=== PATIENT | female | born 1970 | race Caucasian/White ===

== ENCOUNTER → 2017-02-01 | Outpatient (REF) | payer MEDICARE ==
[~2017-02-01] MED LIST: /ESOM40CA; AMIT10TA2; DETR2CAP; PROZ40CA; TOPI50TA
[2017-02-01 21:38] LABS: BASO % 0.6 % (0.0-1.0); EOS # 0.1 K/mm3 (0.0-0.50); EOS % 1.6 % (0.0-3.0); LARGE UNSTAINED CELL # 0.1 K/mm3 (0.0-0.4); LARGE UNSTAINED CELL % 2.7 % (0.0-4.0); LYMPH # 1.2 K/mm3 (1.5-4.5); LYMPH % 29.4 % (24.0-44.0); MEAN CORPUSCULAR HEMOGLOBIN 30.9 pg (27.0-33.0); MEAN CORPUSCULAR HGB CONC 32.6 g/dl (32.0-36.5); MEAN CORPUSCULAR VOLUME 94.8 fl (80.0-96.0); MONO # 0.2 K/mm3 (0.0-0.8); MONO % 5.9 % (0.0-5.0); NEUTROPHILS # 2.4 K/mm3 (1.8-7.7); NEUTROPHILS % 59.8 % (36.0-66.0); RED CELL DISTRIBUTION WIDTH 13.3 % (11.5-14.5); WHITE BLOOD COUNT 3.9 K/mm3 (4.0-10.0)
[2017-02-01 21:49] LABS: ALBUMIN 3.6 GM/DL (3.2-5.2); ALBUMIN/GLOBULIN RATIO 1.16 (1.00-1.93); ALKALINE PHOSPHATASE 100 U/L (45-117); ALT/SGPT 39 U/L (12-78); ANION GAP 8 MEQ/L (8-16); AST/SGOT 21 U/L (15-37); BILIRUBIN,TOTAL 0.4 MG/DL (0.2-1.0); BLOOD UREA NITROGEN 18 MG/DL (7-18); CALCIUM LEVEL 8.2 MG/DL (8.5-10.1); CARBON DIOXIDE LEVEL 22 MEQ/L (21-32); CHLORIDE LEVEL 114 MEQ/L (98-107); CREATININE FOR GFR 1.04 MG/DL (0.55-1.02); GLOMERULAR FILTRATION RATE > 60.0 (>58); GLUCOSE, FASTING 74 MG/DL (70-105); POTASSIUM SERUM 4.1 MEQ/L (3.5-5.1); SODIUM LEVEL 144 MEQ/L (136-145); TOTAL PROTEIN 6.7 GM/DL (6.4-8.2)
[2017-02-01 22:27] LABS: FOLATE 12.5 NG/ML; VITAMIN B12 LEVEL 311 PG/ML
[2017-02-01 22:30] LABS: ADD MORPHOLOGY? YES; PLATELET COUNT, AUTOMATED 95 k/mm3 (150-450)
== END ==
LOC: M LABDRAW1 15:36
PROVIDERS: ATTEND Psychiatry & Neurology Neurology
DX: G35 Multiple sclerosis (principal); G44.229 Chronic tension-type headache, not intractable; G43.009 Migraine without aura, not intractable, without status migrainosus

== ENCOUNTER → 2020-02-10 | Outpatient (REF) | payer MEDICARE, BC, MEDICAID ==
[~2020-02-10] MED LIST changes: -/ESOM40CA; +NEXI1CAP3
[2020-02-10 13:35] LABS: AMORPHOUS SEDIMENT SMALL (NEGATIVE); APPEARANCE, URINE CLOUDY (CLEAR); BACTERIA, URINE AUTO NEGATIVE (NEGATIVE); BILIRUBIN, URINE AUTO NEGATIVE (NEGATIVE); BLOOD, URINE BLOOD NEGATIVE (NEGATIVE); COLOR, URINE YELLOW (YELLOW); GLUCOSE, URINE (UA) AUTO NEGATIVE (NEGATIVE); KETONE, URINE AUTO NEGATIVE (NEGATIVE); LEUKOCYTE ESTERASE, URINE AUTO NEGATIVE (NEGATIVE); NITRITE, URINE AUTO NEGATIVE (NEGATIVE); PROTEIN, URINE AUTO NEGATIVE (NEGATIVE); RBC, URINE AUTO 2 /HPF (0-3); SPECIFIC GRAVITY URINE AUTO 1.013 (1.002-1.035); SQUAMOUS EPITHELIAL CELL UR AU 1 /HPF (0-6); UROBILINOGEN, URINE AUTO 0.2 mg/dL (0.0-2.0); WBC, URINE AUTO 2 /HPF (0-3)
== END ==
LOC: M SMT 12:53
PROVIDERS: ATTEND Nurse Practitioner Women's Health
DX: Z01.818 Encounter for other preprocedural examination (principal); R35.0 Frequency of micturition
CPT/HCPCS: 51798; 81001; 87088; 87186; G0463

== ENCOUNTER → 2020-03-22 | Outpatient (CLI) | payer MEDICARE, BC, MEDICAID ==
[~2020-03-22] MED LIST changes: +BUPR150T3 PO; +CIPR-249 PO; +CYAN1000VL IM; +FAMO40TA3 PO; +TOPA100T12 PO; +VITAD1000T PO
== END ==
LOC: M LABSMTC 09:48
PROVIDERS: ATTEND Anesthesiology
DX: Z01.818 Encounter for other preprocedural examination (principal); Z11.59 Encounter for screening for other viral diseases

== ENCOUNTER 2020-03-23 06:01 | Day surgery (SDC) | payer MEDICARE, MEDICAID ==
[~2020-03-23] VITALS: Ht 152.4 cm; Wt 77.1 kg
[~2020-03-23 06:01] MED LIST changes: +BOTOX THERAPEUTIC 100 UNIT VIAL (J0585 PER 1 UNIT) XX ONE; +LIDOCAINE 1% MDV 20ML VIAL SQ PRN
[2020-03-23] MEDS ORDERED: LR 1,000 ML IV ONE (06:30)
[2020-03-23] MEDS ORDERED: BOTOX THERAPEUTIC 100 UNIT VIAL (J0585 PER 1 UNIT) As Ordered ONE ×2 (07:16→07:25)
[2020-03-23] MEDS ORDERED: propofoL 200 MG/20 ML VIAL As Ordered ONE (07:37)
[2020-03-23] MEDS ORDERED: fentaNYL 100 MCG/2 ML INJECTION (J3010) As Ordered ONE (07:37)
[2020-03-23] MEDS ORDERED: MIDAZOLAM INJ 2MG/2ML VIAL (J2250 PER 1MG) As Ordered ONE (07:37)
[2020-03-23] MEDS ORDERED: LIDOCAINE 2% 5ML JELLY UROJET As Ordered ONE (07:40)
[2020-03-23] MEDS ORDERED: ceFAZolin 2 GM/D5W 50 ML IV BAG (J0690 PER 500MG) As Ordered ONE (07:48)
[2020-03-23] MEDS ORDERED: METOCLOPRAMIDE INJ 10MG/2ML VIAL (J2765 PER 1) IV PRN (08:15)
[2020-03-23] MEDS ORDERED: ONDANSETRON 4MG/2ML VIAL IV PRN (08:15)
[2020-03-23] MEDS ORDERED: LR 1,000 ML IV SCH (08:15)
[2020-03-23] MEDS ORDERED: fentaNYL 100 MCG/2 ML INJECTION (J3010) IV PRN (08:15)
--- NOTE | 2020-03-24 13:31 | RO ---
DATE OF PROCEDURE: 03/23/2020 PREPROCEDURE DIAGNOSIS: Urge urinary incontinence. POSTPROCEDURE DIAGNOSIS: Urge urinary incontinence. PROCEDURE: Cystoscopy, bladder Botox injections. SURGEON: Dr. Navarro Lai [employer]: None. ANESTHESIA: MAC. OPERATIVE INDICATIONS: This is a 49-year-old female with urge urinary incontinence who was brought to the operating room today for the above listed procedure. DESCRIPTION OF PROCEDURE: The patient was brought to the operating room and MAC anesthesia was induced. Prophylactic antibiotics were infused. She was placed in dorsal lithotomy position and prepped and draped in the usual sterile fashion. A rigid cystoscope was inserted into the urethral meatus and advanced into the bladder. There were no abnormalities seen inside the bladder. At this point, a total of 20 units of Botox mixed in 20 mL of normal saline was injected in several areas throughout the bladder. Approximately 20-25 sites were injected. We made sure not to inject on top of the ureteral orifices. Once done, there was excellent hemostasis. The bladder was then emptied of all fluids and this marked the conclusion of the procedure. The patient was then taken out of the dorsal lithotomy position, awakened from anesthesia and transported to the recovery room in stable condition. Estimated blood loss: 5 mL. Complications: None. Specimen: None. Plan: The patient will follow up in the clinic in a few weeks for a postoperative visit to see if her urge urinary incontinence is improved. It is hoped that the effects of the Botox will last for at least 6 to 9 months. MTDD
== END 2020-03-23 09:05 | disposition home or self-care (01) ==
LOC: M SDC 06:01
PROVIDERS: ATTEND Urology
DX: N39.41 Urge incontinence (principal); E07.9 Disorder of thyroid, unspecified; G35 Multiple sclerosis; F41.9 Anxiety disorder, unspecified; F32.9 Major depressive disorder, single episode, unspecified; Z79.899 Other long term (current) drug therapy; Z79.2 Long term (current) use of antibiotics
CPT/HCPCS: 52287; J0585; J0690; J2250; J3010

== ENCOUNTER 2021-05-11 11:11 | Day surgery (SDC) | payer MEDICARE, MEDICAID ==
[~2021-05-11] VITALS: Ht 152.4 cm; Wt 97.1 kg
[~2021-05-11 11:11] MED LIST changes: +BOTOX THERAPEUTIC 100 UNIT VIAL (J0585 PER 1 UNIT) As Ordered ONE; -BOTOX THERAPEUTIC 100 UNIT VIAL (J0585 PER 1 UNIT) XX ONE; +BUPR150T12 PO; -BUPR150T3 PO; +D31000TA2 PO; -LIDOCAINE 1% MDV 20ML VIAL SQ PRN; +LIDOCAINE 2% 5ML JELLY UROJET As Ordered ONE; +LR 1,000 ML IV ONE; +PROP20TA72 PO; +TECF240C PO; -VITAD1000T PO; +ceFAZolin SOD 2 GM in IV 1 EA IV ONE
[2021-05-11] MEDS ORDERED: MIDAZOLAM INJ 2MG/2ML VIAL (J2250 PER 1MG) As Ordered ONE (12:09)
[2021-05-11] MEDS ORDERED: fentaNYL 100 MCG/2 ML INJECTION (J3010) As Ordered ONE (12:09)
[2021-05-11] MEDS ORDERED: ETOMIDATE INJ 20MG/10ML VIAL As Ordered ONE (12:09)
[2021-05-11] MEDS ORDERED: propofoL 200 MG/20 ML VIAL As Ordered ONE ×2 (12:09→12:32)
[2021-05-11] MEDS ORDERED: fentaNYL 100 MCG/2 ML INJECTION (J3010) IV PRN (13:10)
[2021-05-11] MEDS ORDERED: PERCOCET 5MG/325MG TAB PO PRN (13:10)
[2021-05-11] MEDS ORDERED: METOCLOPRAMIDE INJ 10MG/2ML VIAL (J2765 PER 1) IV PRN (13:10)
[2021-05-11] MEDS ORDERED: ONDANSETRON 4MG/2ML VIAL IV PRN (13:10)
[2021-05-11] MEDS ORDERED: LR 1,000 ML IV SCH (13:10)
[2021-05-11 13:52] VITALS: BP 139/61
--- NOTE | 2021-05-11 15:09 | ROOPDOC ---
[facility] Report Of Operation Report of Operation DATE OF PROCEDURE: 05/11/21 PREPROCEDURE DIAGNOSIS: Urge urinary incontinence. POSTPROCEDURE DIAGNOSIS: Urge urinary incontinence. PROCEDURE: Cystoscopy, bladder Botox injections. SURGEON: Dr. Pam Rodriguez [employer]: None. ANESTHESIA: MAC. OPERATIVE INDICATIONS: This is a 50-year-old female with urge urinary incontinence who was brought to the operating room today for the above listed procedure. DESCRIPTION OF PROCEDURE: The patient was brought to the operating room and MAC anesthesia was induced. Prophylactic antibiotics were infused. She was placed in dorsal lithotomy position and prepped and draped in the usual sterile fashion. A rigid cystoscope was inserted into the urethral meatus and advanced into the bladder. There were no abnormalities seen inside the bladder. At this point, a total of 200 units of Botox mixed in 20 mL of normal saline was injected in several areas throughout the bladder. Approximately 20-25 sites were injected. We made sure not to inject on top of the ureteral orifices. Once done, there was excellent hemostasis. The bladder was then emptied of all fluids and this marked the conclusion of the procedure. The patient was then taken out of the dorsal lithotomy position, awakened from anesthesia and transported to the recovery room in stable condition. Estimated blood loss: 5 mL. Complications: None. Specimen: None. Plan: The patient will follow up in the clinic in a few weeks for a postoperative visit to see if her urge urinary incontinence is improved. It is hoped that the effects of the Botox will last for at least 6 to 9 months. PAM RODRIGUEZ MD May 11, 2021 15:09
== END 2021-05-11 15:26 | disposition home or self-care (01) ==
LOC: M SDC 11:11
PROVIDERS: ATTEND Urology
DX: N39.41 Urge incontinence (principal); G35 Multiple sclerosis; R35.0 Frequency of micturition; F32.9 Major depressive disorder, single episode, unspecified; F41.9 Anxiety disorder, unspecified; R23.3 Spontaneous ecchymoses; Z79.899 Other long term (current) drug therapy; Z91.018 Allergy to other foods; Z98.51 Tubal ligation status
CPT/HCPCS: 52287; J0585; J0690; J2250; J3010

== ENCOUNTER → 2021-06-01 | Outpatient (REF) | payer MEDICARE, MEDICAID ==
[~2021-06-01] MED LIST changes: -BOTOX THERAPEUTIC 100 UNIT VIAL (J0585 PER 1 UNIT) As Ordered ONE; -LIDOCAINE 2% 5ML JELLY UROJET As Ordered ONE; -LR 1,000 ML IV ONE; -ceFAZolin SOD 2 GM in IV 1 EA IV ONE
[2021-06-01 14:06] LABS: APPEARANCE, URINE CLEAR (CLEAR); BACTERIA, URINE AUTO 1+ (NEGATIVE); BILIRUBIN, URINE AUTO NEGATIVE (NEGATIVE); BLOOD, URINE BLOOD NEGATIVE (NEGATIVE); COLOR, URINE YELLOW (YELLOW); GLUCOSE, URINE (UA) AUTO NEGATIVE (NEGATIVE); KETONE, URINE AUTO NEGATIVE (NEGATIVE); LEUKOCYTE ESTERASE, URINE AUTO NEGATIVE (NEGATIVE); NITRITE, URINE AUTO POSITIVE (NEGATIVE); PROTEIN, URINE AUTO NEGATIVE (NEGATIVE); RBC, URINE AUTO 0 /HPF (0-3); SQUAMOUS EPITHELIAL CELL UR AU 0 /HPF (0-6); UROBILINOGEN, URINE AUTO 0.2 mg/dL (0.0-2.0); WBC, URINE AUTO 2 /HPF (0-3)
== END ==
LOC: M SMT 13:10
PROVIDERS: ATTEND Nurse Practitioner Women's Health
DX: R32 Unspecified urinary incontinence (principal)

== ENCOUNTER 2023-07-26 13:37 | Day surgery (SDC) | payer MEDICARE, MEDICAID ==
[~2023-07-26] VITALS: Ht 152.4 cm; Wt 88.9 kg
[~2023-07-26 13:37] MED LIST changes: -D31000TA2 PO; +LIDOCAINE 2% 100MG/5ML SDV (FOR ANES.) As Ordered ONE; +MIDAZOLAM INJ 2MG/2ML VIAL As Ordered ONE; +ONDANSETRON 4MG 2ML VIAL As Ordered ONE; +OXCA300T14 PO; +PHEN-239 PO; +TRIA0.5O; +VITA100093 PO; +VITA200016; +ceFAZolin SOD 2 GM in IV 1 EA IV ONE; +fentaNYL 100 MCG/2 ML INJECTION As Ordered ONE; +propofoL 200 MG/20 ML VIAL As Ordered ONE
[2023-07-26] MEDS ORDERED: LR 1,000 ML IV SCH (14:05)
[2023-07-26] MEDS ORDERED: LIDOCAINE 1% SDV 5ML VIAL SC PRN (14:05)
[2023-07-26] MEDS ORDERED: BACTDSTA PO (14:30)
[2023-07-26] MEDS ORDERED: LIDOCAINE 2% 5ML JELLY UROJET As Ordered ONE (15:33)
[2023-07-26] MEDS ORDERED: BOTOX THERAPEUTIC 100 UNIT VIAL As Ordered ONE (15:52)
[2023-07-26 17:10] VITALS: BP 133/75; TEMP 97; O2SAT 98
== END 2023-07-26 17:15 | disposition home or self-care (01) ==
LOC: M SDC 13:37
PROVIDERS: ATTEND Urology
DX: N39.41 Urge incontinence (principal); N32.81 Overactive bladder; G35 Multiple sclerosis; Z91.018 Allergy to other foods; Z79.899 Other long term (current) drug therapy
CPT/HCPCS: 52287; A4215; J0585; J0690; J1100; J2250; J2405; J3010

== ENCOUNTER 2024-06-16 22:08 | Observation (INO) | payer MEDICAID, MEDICARE ==
[~2024-06-16] VITALS: Ht 152.4 cm; Wt 101.5 kg
[~2024-06-16 22:08] MED LIST changes: +BACTDSTA PO; -LIDOCAINE 2% 100MG/5ML SDV (FOR ANES.) As Ordered ONE; -MIDAZOLAM INJ 2MG/2ML VIAL As Ordered ONE; -ONDANSETRON 4MG 2ML VIAL As Ordered ONE; -ceFAZolin SOD 2 GM in IV 1 EA IV ONE; -fentaNYL 100 MCG/2 ML INJECTION As Ordered ONE; -propofoL 200 MG/20 ML VIAL As Ordered ONE
[2024-06-16 22:56] LABS: BASO % 0.7 % (0.0-1.0); EOS # 0.1 10^3/uL (0.0-0.5); EOS % 1.5 % (0.0-3.0); HEMATOCRIT 42.3 % (36.0-47.0); HEMOGLOBIN 14.3 g/dl (12.0-15.5); LYMPH # 1.5 10^3/uL (1.5-5.0); LYMPH % 31.8 % (24.0-44.0); MEAN CORPUSCULAR HEMOGLOBIN 31.6 pg (27.0-33.0); MEAN CORPUSCULAR HGB CONC 33.8 g/dl (32.0-36.5); MEAN CORPUSCULAR VOLUME 93.4 fl (80.0-96.0); MONO # 0.3 10^3/uL (0.0-0.8); MONO % 7.2 % (2.0-8.0); NEUTROPHILS # 2.7 10^3/uL (1.5-8.5); NEUTROPHILS % 58.1 % (36.0-66.0); PLATELET COUNT, AUTOMATED 123 10^3/uL (150-450); RED BLOOD COUNT 4.53 10^6/uL (4.00-5.40); WHITE BLOOD COUNT 4.6 10^3/uL (4.0-10.0)
[2024-06-16 23:15] LABS: ETHYL ALCOHOL (ETHANOL) < 0.003 % (0.000-0.010)
[2024-06-16 23:17] LABS: CPK CREATINE PHOSPHOKINASE 87 U/L (34-145); SALICYLATE LEVEL < 3.0 MG/DL (<30)
[2024-06-16 23:18] LABS: ALBUMIN 3.5 G/DL (3.2-5.2); ALKALINE PHOSPHATASE 87 U/L (46-116); ALT/SGPT 31 U/L (7.0-40); AST/SGOT 22 U/L (<34); BILIRUBIN,DIRECT 0.2 MG/DL (<0.4); BILIRUBIN,TOTAL 0.7 MG/DL (0.3-1.2); BLOOD UREA NITROGEN 15 MG/DL (9-23); CALCIUM LEVEL 8.1 MG/DL (8.5-10.1); CARBON DIOXIDE LEVEL 24 MMOL/L (20-31); CHLORIDE LEVEL 111 MMOL/L (98-107); CREATININE FOR GFR 0.76 MG/DL (0.55-1.30); GLOMERULAR FILTRATION RATE > 60.0 (>51); GLUCOSE, FASTING 89 MG/DL (60-100); POTASSIUM SERUM 3.9 MMOL/L (3.5-5.1); SODIUM LEVEL 143 MMOL/L (136-145); TOTAL PROTEIN 6.5 G/DL (5.7-8.2)
[2024-06-16 23:19] LABS: THYROID STIMULATING HORMONE 1.503 uIU/ML (0.55-4.78)
[2024-06-17] MEDS: NS 1,000 ML IV ONE (00:41)
[2024-06-17 01:16] LABS: AMPHETAMINES LEVEL URINE NEGATIVE (NEGATIVE); BARBITURATES URINE NEGATIVE (NEGATIVE); BENZODIAZEPINES URINE NEGATIVE (NEGATIVE); CANNABINOIDS URINE NEGATIVE (NEGATIVE); COCAINE METABOLITE URINE NEGATIVE (NEGATIVE); METHADONE URINE NEGATIVE (NEGATIVE); OPIATES URINE NEGATIVE (NEGATIVE); PHENCYCLIDINE URINE NEGATIVE (NEGATIVE)
[2024-06-17] MEDS ORDERED: ACETAMINOPHEN TAB 650MG DOSE (2X325MG) PO PRN (06:40)
[2024-06-17] MEDS ORDERED: MOM 30ML SUSPENSION UDC PO PRN (06:40)
[2024-06-17] MEDS ORDERED: MAALOX 30 ML SUSP *UDC PO PRN (06:40)
[2024-06-17] MEDS ORDERED: IBUPROFEN 400MG TAB PO PRN (06:40)
[2024-06-17] MEDS ORDERED: diphenhydrAMINE 25MG CAP PO PRN (06:40)
[2024-06-17] MEDS ORDERED: traZODone 50 MG TAB PO PRN (06:40)
[2024-06-17] MEDS ORDERED: TRIA0.5O TOP (06:53)
[2024-06-17] MEDS ORDERED: NICOTINE 21MG/24HR 1 EA TRANSDERMAL TD SCH (09:00)
[2024-06-17] MEDS ORDERED: ONDANSETRON 4MG 2ML VIAL As Ordered ONE (09:54)
[2024-06-17] MEDS ORDERED: ISOVUE-370 76% 100ML VIAL As Ordered ONE (09:57)
[2024-06-17] MEDS: ONDANSETRON 4MG 2ML VIAL IV ONE (10:21)
[2024-06-17] MEDS: NS 500 ML IV ONE (10:23)
[2024-06-17 10:28] LABS: BASO % 0.5 % (0.0-1.0); EOS # 0.1 10^3/uL (0.0-0.5); EOS % 0.9 % (0.0-3.0); HEMATOCRIT 43.7 % (36.0-47.0); HEMOGLOBIN 14.7 g/dl (12.0-15.5); LYMPH # 0.9 10^3/uL (1.5-5.0); LYMPH % 15.8 % (24.0-44.0); MEAN CORPUSCULAR HEMOGLOBIN 31.2 pg (27.0-33.0); MEAN CORPUSCULAR HGB CONC 33.6 g/dl (32.0-36.5); MEAN CORPUSCULAR VOLUME 92.8 fl (80.0-96.0); MONO # 0.3 10^3/uL (0.0-0.8); MONO % 4.6 % (2.0-8.0); NEUTROPHILS # 4.4 10^3/uL (1.5-8.5); NEUTROPHILS % 77.7 % (36.0-66.0); PLATELET COUNT, AUTOMATED 123 10^3/uL (150-450); RED BLOOD COUNT 4.71 10^6/uL (4.00-5.40); WHITE BLOOD COUNT 5.7 10^3/uL (4.0-10.0)
[2024-06-17] MEDS ORDERED: D200CAP3 PO (10:28)
[2024-06-17] MEDS ORDERED: VENL37.598 PO (10:28)
[2024-06-17] MEDS ORDERED: TERI7TAB PO (10:28)
[2024-06-17] MEDS ORDERED: HOME MED LIST COMPLETE! XX SCH (10:35)
[2024-06-17 10:37] LABS: INR 1.11; PARTIAL THROMBOPLASTIN TIME 26.8 SECONDS (24.8-34.2)
[2024-06-17 10:50] LABS: BLOOD UREA NITROGEN 11 MG/DL (9-23); CALCIUM LEVEL 8.3 MG/DL (8.5-10.1); CARBON DIOXIDE LEVEL 22 MMOL/L (20-31); CHLORIDE LEVEL 114 MMOL/L (98-107); CREATININE FOR GFR 0.65 MG/DL (0.55-1.30); GLOMERULAR FILTRATION RATE > 60.0 (>51); GLUCOSE, FASTING 123 MG/DL (60-100); POTASSIUM SERUM 3.7 MMOL/L (3.5-5.1); SODIUM LEVEL 142 MMOL/L (136-145)
[2024-06-17] MEDS: D5W/0.45% SODIUM CHLORIDE 1,000 ML IV ONE (12:24)
[2024-06-17] MEDS ORDERED: ONDANSETRON 4MG TAB PO PRN (15:15)
[2024-06-17] MEDS: NS 1,000 ML IV SCH (15:39)
[2024-06-17 15:51] LABS: HEMATOCRIT 43.6 % (36.0-47.0); HEMOGLOBIN 14.9 g/dl (12.0-15.5); MEAN CORPUSCULAR HGB CONC 34.2 g/dl (32.0-36.5); MEAN CORPUSCULAR VOLUME 93.6 fl (80.0-96.0); PLATELET COUNT, AUTOMATED 107 10^3/uL (150-450); RED BLOOD COUNT 4.66 10^6/uL (4.00-5.40)
[2024-06-17 16:09] LABS: ALBUMIN 3.4 G/DL (3.2-5.2); ALKALINE PHOSPHATASE 90 U/L (46-116); ALT/SGPT 32 U/L (7.0-40); AST/SGOT 22 U/L (<34); BILIRUBIN,TOTAL 0.8 MG/DL (0.3-1.2); BLOOD UREA NITROGEN 9 MG/DL (9-23); CALCIUM LEVEL 8.2 MG/DL (8.5-10.1); CARBON DIOXIDE LEVEL 21 MMOL/L (20-31); CHLORIDE LEVEL 112 MMOL/L (98-107); GLOMERULAR FILTRATION RATE > 60.0 (>51); GLUCOSE, FASTING 141 MG/DL (60-100); POTASSIUM SERUM 4.1 MMOL/L (3.5-5.1); SODIUM LEVEL 141 MMOL/L (136-145); TOTAL PROTEIN 6.5 G/DL (5.7-8.2)
[2024-06-17 17:02] LABS: LIPASE 26 U/L (12-53)
[2024-06-17] MEDS: ONDANSETRON 4MG 2ML VIAL IV PRN (17:15)
[2024-06-17 20:42] VITALS: BP 142/78; TEMP 96.5; O2SAT 98
[2024-06-17] MEDS: FAMOTIDINE 20 MG TAB PO SCH (21:15)
[2024-06-17] MEDS: PROPRANOLOL 20 MG TAB PO SCH (21:15)
[2024-06-17] MEDS: ACETAMINOPHEN TAB 650MG DOSE (2X325MG) PO PRN (21:16)
[2024-06-17] MEDS: LORazepam 2 MG/ML 1ML VIAL IV STA (22:55)
[2024-06-18] MEDS ORDERED: IBUPROFEN 400MG TAB As Ordered ONE (01:25)
[2024-06-18 04:42] VITALS: BP 138/64; TEMP 98.5; O2SAT 97
[2024-06-18 07:35] VITALS: BP 138/64
[2024-06-18] MEDS: VENLAFAXINE **XR** 37.5 MG CAPSULE PO SCH (07:36)
[2024-06-18 08:11] LABS: HEMATOCRIT 38.8 % (36.0-47.0); HEMOGLOBIN 13.4 g/dl (12.0-15.5); MEAN CORPUSCULAR HEMOGLOBIN 31.9 pg (27.0-33.0); MEAN CORPUSCULAR HGB CONC 34.5 g/dl (32.0-36.5); MEAN CORPUSCULAR VOLUME 92.4 fl (80.0-96.0); PLATELET COUNT, AUTOMATED 112 10^3/uL (150-450); WHITE BLOOD COUNT 4.9 10^3/uL (4.0-10.0)
[2024-06-18 08:48] LABS: ALBUMIN 3.2 G/DL (3.2-5.2); ALKALINE PHOSPHATASE 80 U/L (46-116); ALT/SGPT 27 U/L (7.0-40); AST/SGOT 18 U/L (<34); BILIRUBIN,TOTAL 0.9 MG/DL (0.3-1.2); BLOOD UREA NITROGEN 8 MG/DL (9-23); CARBON DIOXIDE LEVEL 22 MMOL/L (20-31); CHLORIDE LEVEL 113 MMOL/L (98-107); GLOMERULAR FILTRATION RATE > 60.0 (>51); GLUCOSE, FASTING 84 MG/DL (60-100); MAGNESIUM LEVEL 1.6 MG/DL (1.8-2.4); POTASSIUM SERUM 3.5 MMOL/L (3.5-5.1); SODIUM LEVEL 142 MMOL/L (136-145); TOTAL PROTEIN 5.8 G/DL (5.7-8.2)
[2024-06-18] MEDS ORDERED: TERIFLUNOMIDE 7 MG PO SCH (09:00)
[2024-06-18 12:18] VITALS: BP 124/59; TEMP 97.1; O2SAT 99
[2024-06-18] MEDS: MAGNESIUM OXIDE 400MG TAB (MAG-OX) PO SCH (12:40)
== END 2024-06-18 14:15 ==
LOC: M ED 22:08 → EDBD 22:08 → UNDOADMIN 06-17 06:40 → M ED INP 06-17 06:40 → M MS5PR 06-17 16:50
PROVIDERS: ADMIT Internal Medicine; ATTEND Internal Medicine
DX: T14.91XA Suicide attempt, initial encounter (principal); Y92.098 Other place in other non-institutional residence as the place of occurrence of the external cause; T42.1X2A Poisoning by iminostilbenes, intentional self-harm, initial encounter; R41.82 Altered mental status, unspecified; R11.2 Nausea with vomiting, unspecified; F32.A Depression, unspecified; G35 Multiple sclerosis; F43.9 Reaction to severe stress, unspecified; D75.82 Heparin induced thrombocytopenia (HIT); M50.80 Other cervical disc disorders, unspecified cervical region; E55.9 Vitamin D deficiency, unspecified; K21.9 Gastro-esophageal reflux disease without esophagitis; R32 Unspecified urinary incontinence; G43.909 Migraine, unspecified, not intractable, without status migrainosus; Z83.3 Family history of diabetes mellitus; Z80.42 Family history of malignant neoplasm of prostate; Z98.51 Tubal ligation status; Z90.89 Acquired absence of other organs; Z91.018 Allergy to other foods; Z79.899 Other long term (current) drug therapy

== ENCOUNTER 2024-06-18 09:05 | Inpatient (IN) | payer MEDICARE ==
[~2024-06-18] VITALS: Ht 152.4 cm; Wt 101.5 kg
[~2024-06-18 09:05] MED LIST changes: +D200CAP3 PO; +TERI7TAB PO; +TRIA0.5O TOP; +VENL37.598 PO
[2024-06-18] MEDS ORDERED: IBUPROFEN 400MG TAB PO PRN (10:00)
[2024-06-18] MEDS ORDERED: MAALOX 30 ML SUSP *UDC PO PRN (10:00)
[2024-06-18] MEDS ORDERED: ACETAMINOPHEN TAB 650MG DOSE (2X325MG) PO PRN (10:00)
[2024-06-18] MEDS ORDERED: diphenhydrAMINE 25MG CAP PO PRN (10:00)
[2024-06-18] MEDS ORDERED: LORazepam 2 MG TAB PO PRN (10:00)
[2024-06-18] MEDS ORDERED: OLANZapine 5 MG TAB PO PRN (10:00)
[2024-06-18] MEDS ORDERED: MOM 30ML SUSPENSION UDC PO PRN (10:00)
[2024-06-18 14:53] VITALS: BP 124/59; TEMP 97.1; O2SAT 99
[2024-06-18 14:54] VITALS: BP 124/59
[2024-06-18] MEDS: NICOTINE 21MG/24HR 1 EA TRANSDERMAL TD SCH (18:53)
[2024-06-18] MEDS: MULTIVITAMINS/MINERALS THERAP 1 TAB PO SCH (18:55)
[2024-06-18] MEDS: FOLIC ACID 1MG TAB PO SCH (18:55)
[2024-06-18] MEDS: PROPRANOLOL 20 MG TAB PO SCH (18:55)
[2024-06-18] MEDS: THIAMINE 100 MG TAB PO SCH (18:56)
[2024-06-18] MEDS: TOPIRAMATE (TopAMAX) 100 MG TAB PO SCH (20:38)
[2024-06-18] MEDS: traZODone 50 MG TAB PO PRN (20:38)
[2024-06-18] MEDS ORDERED: ENTER DRUG NAME HERE (PATIENT'S OWN MED) PO SCH (21:00)
[2024-06-18] MEDS: FAMOTIDINE 20 MG TAB PO SCH (21:00)
[2024-06-19 06:24] VITALS: BP 129/79; TEMP 98.9; O2SAT 99
[2024-06-19 06:26] VITALS: BP 129/79
[2024-06-19] MEDS: OXcarbazepine 150 MG TAB PO SCH (12:43)
[2024-06-19 14:00] VITALS: BP 149/82
[2024-06-19 16:42] VITALS: BP 149/82; TEMP 97.2; O2SAT 100
[2024-06-19 22:40] VITALS: BP 142/78
[2024-06-20 06:33] VITALS: BP 97/55
[2024-06-20 06:52] VITALS: BP 97/55; TEMP 97.1; O2SAT 99
[2024-06-20 07:30] VITALS: BP 136/83; O2SAT 93
[2024-06-20] MEDS: VENLAFAXINE **XR** 75MG CAPSULE PO SCH (10:01)
[2024-06-20 17:42] VITALS: BP 139/74; TEMP 97.1; O2SAT 100
[2024-06-21 06:25] VITALS: BP 109/59; TEMP 97.3; O2SAT 100
[2024-06-21 17:11] VITALS: BP 140/82; TEMP 97.3; O2SAT 94
[2024-06-22 06:29] VITALS: BP 98/55; TEMP 97.4; O2SAT 96
[2024-06-22] MEDS ORDERED: VENL75TA2 PO (10:50)
[2024-06-22 19:49] VITALS: BP 145/71; TEMP 98
[2024-06-23 06:19] VITALS: BP 128/73; TEMP 97.5; O2SAT 97
[2024-06-23 06:32] VITALS: BP 128/73
== END 2024-06-23 12:56 | disposition home or self-care (01) | DRG 881 ==
LOC: EEVIPCON 14:30 → M PSY 14:30
PROVIDERS: ADMIT Student in an Organized Health Care Education/Training Program; ATTEND Student in an Organized Health Care Education/Training Program
DX: F32.A Depression, unspecified (principal); R41.82 Altered mental status, unspecified; R11.2 Nausea with vomiting, unspecified; T42.1X2A Poisoning by iminostilbenes, intentional self-harm, initial encounter; G35 Multiple sclerosis; F43.9 Reaction to severe stress, unspecified; D75.82 Heparin induced thrombocytopenia (HIT); M50.80 Other cervical disc disorders, unspecified cervical region; E55.9 Vitamin D deficiency, unspecified; K21.9 Gastro-esophageal reflux disease without esophagitis; R32 Unspecified urinary incontinence; G43.909 Migraine, unspecified, not intractable, without status migrainosus; Z83.3 Family history of diabetes mellitus; Z80.42 Family history of malignant neoplasm of prostate; Z98.51 Tubal ligation status; Z90.89 Acquired absence of other organs; Z91.018 Allergy to other foods; Z79.899 Other long term (current) drug therapy; Z63.8 Other specified problems related to primary support group